=== PATIENT | male | born 1970 | race Caucasian/White ===

== ENCOUNTER 2021-12-11 10:11 | Emergency (ER) | payer OTHER, SELFPAY ==
[2021-12-11 10:51] VITALS: BP 114/67; PULSE 102; RESP 18; TEMP 37.1; O2SAT 97
--- NOTE | 2021-12-11 10:54 | ED.URI ---
HPI - URI/Sore Throat General Chief Complaint: Upper Respiratory Infection Stated Complaint: sore throat,chills,body aches Time Seen by Provider: 12/11/21 10:54 Source: patient and RN notes reviewed Mode of arrival: ambulatory Limitations: no limitations History of Present Illness HPI Narrative: 51-year-old male presented for complaint of sore throat, body aches, and chills for 2 days. Denies sick contacts. He has boosted for COVID. He has taken DayQuil and NyQuil for symptoms and takes daily Zyrtec. Denies cough, shortness of breath, nausea, vomiting, diarrhea. MD elicited complaint: cough Related Data Home Medications Medication Instructions Recorded Confirmed Zyrtec 12/11/21 escitalopram oxalate 10 mg tablet tablet 12/11/21 levothyroxine 50 mcg tablet tablet 12/11/21 Allergies Allergy/AdvReac Type Severity Reaction Status Date / Time No Known Allergies Allergy Verified 12/11/21 11:22 Review of Systems Review of Systems: ROS negative except as in HPI [facility] Family History Family History Mother Carcinoma of colon Social History Social History Smoking status: Former smoker Smoking end date: 06/05/08 Alcohol intake: current Exam Narrative: GENERAL: well-appearing EYES: conjunctivae clear ENT: Mucous membranes moist. TM pearly jones with dull light reflex bilaterally; no tragal tenderness. Oropharynx erythematous without lesions or exudate, no drooling, no hoarseness, no trismus, uvula midline. NECK: Supple. No lymphadenopathy CHEST: Clear to auscultation, breath sounds equal. HEART: Regular rate and rhythm. SKIN: Warm, dry, no rash. NEURO: Alert and oriented x3. Course Course Emergency Course: Patient is aware of diagnosis, understands and agrees to treatment plan. Anticipatory guidance given. Patient agrees to follow-up as directed and is aware of reasons to seek care at the emergency department. Portions of this record may have been created with voice recognition software Level of Care: Express Care Visit Vital Signs Vital signs: Vital Signs Temperature 98.7 F 12/11/21 10:51 Pulse Rate 102 H 12/11/21 10:51 Respiratory Rate 18 12/11/21 10:51 Blood Pressure 114/67 12/11/21 10:51 Pulse Oximetry 97 12/11/21 10:51 Temperature 98.7 F 12/11/21 10:51 Pulse Rate 102 H 12/11/21 10:51 Respiratory Rate 18 12/11/21 10:51 Blood Pressure 114/67 12/11/21 10:51 Pulse Oximetry 97 12/11/21 10:51 reviewed MDM - URI/Sore Throat MDM Narrative Medical decision making narrative: negative flu, covid, strep. Advised supportive measures and signs/symptoms to go to the ER. Pt is appropriate for outpt treatment and f/u. Differential Diagnosis Differential diagnosis: Likely upper respiratory infection, sinusitis and viral infection Lab Data Labs: Lab Results 12/11/21 Range/Units 10:58 POC SARS CoV-2 Ag Negative (Negative) Influenza A Screen Negative Reference Range: Negative Influenza B Screen Negative Reference Range: Negative Strep Screen Presumptive Negative *(Reference Range: Negative)* Discharge Plan Discharge Clinical Impression: Upper respiratory infection Qualifiers: URI type: unspecified URI Qualified Code(s): J06.9 - Acute upper respiratory infection, unspecified Patient Disposition: Home, Self-Care Condition: Stable Instructions: Antibiotic Form Additional Instructions: covid and flu negative Rapid strep swab was negative today You will be notified in a few days if the strep culture comes back positive for strep, and appropriate antibiotics will be called in at that time. if symptoms are due to a viral illness, it is not mckay
== END 2021-12-11 11:45 | disposition home or self-care (01) ==
PROVIDERS: Emergency Provider Nurse Practitioner Family; PCP Family Medicine Sports Medicine
DX: J06.9 Acute upper respiratory infection, unspecified (principal); Z20.822 Contact with and (suspected) exposure to COVID-19; Z87.891 Personal history of nicotine dependence
CPT/HCPCS: 87081; 87426; 87804; 87880; 99213; C9803; G0463